=== PATIENT | female | born 1985 | race Caucasian/White ===

== ENCOUNTER → 2021-04-11 03:53 | Outpatient (CLI) | payer OTHER, SELFPAY ==
[2021-04-16 23:10] LABS: SARS-CoV-2 RNA PCR Positive
== END ==
PROVIDERS: PCP Family Medicine; Visit Provider Nurse Practitioner Family
DX: U07.1 COVID-19 (principal)
CPT/HCPCS: C9803; U0003; U0005

== ENCOUNTER 2022-02-23 10:31 | Emergency (ER) | payer BC, SELFPAY ==
[2022-02-23 10:44] VITALS: BP 135/85; PULSE 64; RESP 18; TEMP 36.2; O2SAT 99
--- NOTE | 2022-02-23 10:53 | ED.URI ---
HPI - URI/Sore Throat General Chief Complaint: Ear Stated Complaint: bilateral ear pain Time Seen by Provider: 02/23/22 10:33 Source: patient Mode of arrival: ambulatory Limitations: no limitations History of Present Illness HPI Narrative: 36-year-old female presents to [facility] with complaints of bilateral ear pressure, fatigue, cough, postnasal drip, runny nose and nasal congestion for the past week. Patient has been taking [id number] ibuprofen and Tylenol with minimal relief. Patient reports that her daughter had similar symptoms last week and was diagnosed with a cold after test negative for influenza, strep and RSV. Patient denies nausea vomiting, diarrhea, shortness of breath or wheezing. MD elicited complaint: cough, rhinorrhea and nasal congestion Onset (ago): week(s) (1) Able to tolerate fluids by mouth: Yes Context: sick contacts (daughter) Treatments prior to arrival: acetaminophen and ibuprofen Related Data Home Medications Medication Instructions Recorded Confirmed Unknown Iud 02/23/22 Allergies Allergy/AdvReac Type Severity Reaction Status Date / Time No Known Allergies Allergy Verified 02/23/22 10:49 Review of Systems Constitutional: Constitutional: Denies chills, Reports fatigue, Denies fever(s) and Denies weakness ENT: Denies vertigo, Denies dizziness, Denies epistaxis and Reports nasal congestion Comments: Runny nose, bilateral ear pressure Cardiovascular: Cardiovascular: Denies chest pain Respiratory: Respiratory: Reports cough, Denies dyspnea and Denies wheezing Gastrointestinal: Gastrointestinal: Denies abdominal pain, Denies diarrhea, Denies nausea and Denies vomiting Integumentary/Breasts: Skin/Breast: Denies rash Neurologic: Denies dizziness and Denies syncope Allergic/Immunologic: Allergic/Immunologic: Denies lip swelling, Denies throat swelling, Denies tongue swelling and Denies wheezing PMF Past Medical History Medical History Acute non-recurrent maxillary sinusitis Acute pharyngitis, unspecified (09/16/17) Anxiety BMI 33.0-33.9,adult BMI 35.0-35.9,adult BMI 37.0-37.9, adult delivery delivered Dietary counseling and surveillance (05/27/16) Dizziness Dysfunction of both eustachian tubes Elevated liver enzymes History of elevated blood pressure while in hospital Mixed hyperlipidemia Otalgia of right ear Screening for diabetes mellitus Screening for lipid disorders Screening for thyroid disorder Sprain of unspecified ligament of right ankle, initial encounter Family History Family History Father Hypertension Mother Hypertension Diabetes mellitus Grandparent Family history of malignant neoplasm of breast in first degree relative Sibling No problems noted. 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 There is no relevant family history pertinent to the presenting complaint. Exam Const: General: healthy appearing and no acute distress Nutritional Appearance: well nourished Orientation/consciousness: patient oriented x3 Limitations: no limitations HENMT: Head: normal to inspection Ears: external ears normal and TM's normal bilaterally Face/Nose/Sinus: Normal external nose present Face and sinus: normal facial exam Mouth: Yes Normal oral and palatal mucosa present and Yes lip normal Teeth and gingiva: dentition normal Throat: posterior oropharynx normal and uvula midline Eyes: Conjunctivae:
== END 2022-02-23 11:03 | disposition home or self-care (01) ==
PROVIDERS: Emergency Provider Nurse Practitioner Family; PCP Family Medicine
DX: J06.9 Acute upper respiratory infection, unspecified (principal); E78.2 Mixed hyperlipidemia
CPT/HCPCS: 99213; G0463

== ENCOUNTER 2022-06-15 14:58 | Emergency (ER) | payer BC, SELFPAY ==
--- NOTE | ~2022-06-15 | XR_ITS ---
EXAM: XR elbow RT min 3V DATE: 06/15/2022 15:16 HISTORY: FALL, RIGHT ELBOW PAIN . COMPARISON: None available. FINDINGS: Normal mineralization. No fracture or dislocation. No lytic or blastic lesion. Joint space s are maintained. No erosion or periosteal change. Soft tissues within normal limits. IMPRESSION: No acute osseous finding in the right elbow. Reviewed, dictated and finalized at location [facility]
[2022-06-15 15:05] VITALS: BP 132/89; PULSE 97; RESP 16; TEMP 36.4; O2SAT 100
[2022-06-15 15:07] VITALS: BP 132/89; PULSE 97; RESP 16; TEMP 36.4; O2SAT 100
--- NOTE | 2022-06-15 15:37 | ED.UPPEXIN ---
HPI - Extremity Injury (Upper) General Chief Complaint: Extremity Injury, Upper Stated Complaint: rt elbow injury Time Seen by Provider: 06/15/22 15:32 Source: patient Mode of arrival: ambulatory Limitations: no limitations History of Present Illness HPI narrative: Patient presents today complaining of right elbow pain. She slipped and fell on the floor in her home yesterday onto her elbow. Denies numbness or tingling in the arm or hand. She currently rates her pain 6/10 at rest, which increases with any movement or touching of the area. She has not tried any [id number] interventions prior to arrival. Related Data Home Medications Medication Instructions Recorded Confirmed semaglutide (weight loss) 0.5 0.5 mg subcut WEEKLY 06/15/22 06/15/22 mg/0.5 mL subcutaneous pen injector (Wegovy) Allergies Allergy/AdvReac Type Severity Reaction Status Date / Time No Known Allergies Allergy Verified 06/15/22 15:05 Review of Systems Review of Systems: CONSTITUTIONAL: Denies body aches, fever, chills, or sweats. EYES: Denies visual changes, redness, or discharge. ENT: Denies rhinorrhea, congestion, sore throat, or otalgia. CARDIOVASCULAR: Denies chest pain, palpitations, or edema. RESPIRATORY: Denies cough or dyspnea. GASTROINTESTINAL: Denies abdominal pain, nausea, vomiting, or diarrhea. GENITOURINARY: Denies dysuria or hematuria. SKIN: Denies rash, itching, or wounds. MUSCULOSKELETAL: Denies back pain, or myalgia.+ right elbow pain NEUROLOGIC: Denies headache, numbness, tingling, or weakness. PSYCH: Denies depression or anxiety. [facility] Past Medical History Medical History Acute non-recurrent maxillary sinusitis Acute pharyngitis, unspecified (09/16/17) Anxiety BMI 33.0-33.9,adult BMI 35.0-35.9,adult BMI 36.0-36.9,adult BMI 37.0-37.9, adult delivery delivered Dietary counseling and surveillance (05/27/16) Dizziness Dysfunction of both eustachian tubes Elevated liver enzymes History of elevated blood pressure while in hospital Mixed hyperlipidemia Otalgia of right ear Screening for diabetes mellitus Screening for lipid disorders Screening for thyroid disorder Sprain of unspecified ligament of right ankle, initial encounter Family History Family History Father Hypertension Mother Hypertension Diabetes mellitus Grandparent Family history of malignant neoplasm of breast in first degree relative Sibling No problems noted. 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 Please see nursing chart for further information. There is no relevant family history pertinent to the presenting complaint Exam Narrative: GENERAL: Well-appearing, well-nourished, and in no acute distress. HEAD: Normocephalic, atraumatic. EYES: EOMI. No redness or drainage. Conjunctivae normal. ENT: Mucous membranes pink and moist. NECK: Normal AROM. CHEST: No respiratory distress. EXTREMITIES: Right elbow: Tenderness to the posteri
== END 2022-06-15 15:43 | disposition home or self-care (01) ==
PROVIDERS: Emergency Provider Nurse Practitioner; PCP Family Medicine
DX: S50.01XA Contusion of right elbow, initial encounter (principal); W01.0XXA Fall on same level from slipping, tripping and stumbling without subsequent striking against object, initial encounter; E78.2 Mixed hyperlipidemia
CPT/HCPCS: 73080; 99213; G0463

== ENCOUNTER 2023-06-21 13:37 | Emergency (ER) | payer BC, SELFPAY ==
--- NOTE | 2023-06-21 13:39 | ED.URI ---
HPI - URI/Sore Throat General Chief Complaint: Upper Respiratory Infection Stated Complaint: Sore Throat, Earache, Drainage, Cough Time Seen by Provider: 06/21/23 14:02 Source: patient, RN notes reviewed and old records reviewed Mode of arrival: ambulatory Limitations: no limitations History of Present Illness HPI Narrative: 38-year-old female presents to the [facility] with complaints of a sore throat, ear pain, drainage and that started , 3 days ago. Has tried DayQuil. Related Data Allergies Allergy/AdvReac Type Severity Reaction Status Date / Time No Known Allergies Allergy Verified 06/21/23 13:45 Review of Systems Review of Systems: All systems reviewed & are unremarkable except as noted in HPI and below Constitutional: Constitutional: Reports no additional constitutional complaints Eyes: Eyes: Reports no additional eye complaints ENT: Reports as per HPI, Reports otalgia and Reports nasal discharge Cardiovascular: Cardiovascular: Reports no additional cardiovascular complaints, Denies chest pain and Denies dyspnea Respiratory: Respiratory: Reports no additional respiratory complaints, Denies chest congestion, Denies cough and Denies dyspnea Gastrointestinal: Gastrointestinal: Reports no additional gastrointestinal complaints, Denies abdominal pain, Denies nausea and Denies vomiting Musculoskeletal: Musculoskeletal: Reports no additional musculoskeletal complaints Integumentary/Breasts: Skin/Breast: Reports system reviewed and no additional complaints, except as docu Neurologic: Reports system reviewed and no additional complaints, except as documented Psychiatric: Psychiatric: Reports no additional psychiatric complaints Allergic/Immunologic: Allergic/Immunologic: Reports no additional allergic/immunologic complaints PMFSH Past Medical History Medical History Acute non-recurrent maxillary sinusitis Acute pharyngitis, unspecified (09/16/17) Anxiety BMI 35.0-35.9,adult delivery delivered Dietary counseling and surveillance (05/27/16) Dizziness Dysfunction of both eustachian tubes Elevated liver enzymes History of elevated blood pressure while in hospital Mixed hyperlipidemia Otalgia of right ear Screening for diabetes mellitus Screening for lipid disorders Screening for thyroid disorder Sprain of unspecified ligament of right ankle, initial encounter Family History Family History Father Hypertension Mother Hypertension Diabetes mellitus Grandparent Family history of malignant neoplasm of breast in first degree relative Sibling No problems noted. 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 There is no relevant family history pertinent to the patient complaint. Exam Const: General: cooperative, healthy appearing, comfortable, no acute distress, well developed, alert and well nourished Nutritional Appearance: well nourished Orientation/consciousness: patient oriented x3 Limitations: no limitations HENMT: Head: normal to inspect
[2023-06-21 13:47] VITALS: BP 141/84; PULSE 73; RESP 16; TEMP 36.4; O2SAT 99
== END 2023-06-21 14:18 | disposition home or self-care (01) ==
PROVIDERS: Emergency Provider Nurse Practitioner; PCP Family Medicine
DX: J06.9 Acute upper respiratory infection, unspecified (principal); R09.82 Postnasal drip; E78.2 Mixed hyperlipidemia
CPT/HCPCS: 87081; 87880; 99213; G0463

== ENCOUNTER 2025-02-26 09:10 | Emergency (ER) | payer OTHER, SELFPAY ==
[2025-02-26 09:25] VITALS: BP 121/80; PULSE 86; RESP 18; TEMP 36.6; O2SAT 99
--- NOTE | 2025-02-26 09:45 | ED.GENADULT ---
HPI - General Adult General Chief complaint: Upper Respiratory Infection Stated complaint: Sore Throat History of Present Illness HPI narrative: Jojo Ruiz is a 39 y/o female who presents with reports of having a sore throat some post nasal drainage that started 2 days ago. She states her daughter tested positive for strep 2 days ago and she wanted to make sure she does not have it. Related Data Allergies Allergy/AdvReac Type Severity Reaction Status Date / Time No Known Allergies Allergy Verified 02/26/25 09:31 Review of Systems Review of Systems: All systems reviewed & are unremarkable except as noted in HPI and below PMFSH Past Medical History Medical History ADHD BMI 35.0-35.9,adult Otalgia of right ear delivery delivered Acute non-recurrent maxillary sinusitis Acute pharyngitis, unspecified (09/16/17) Anxiety Dietary counseling and surveillance (05/27/16) Dizziness Dysfunction of both eustachian tubes Elevated liver enzymes History of elevated blood pressure while in hospital Mixed hyperlipidemia Screening for diabetes mellitus Screening for lipid disorders Screening for thyroid disorder Sprain of unspecified ligament of right ankle, initial encounter Surgical History Surgical History Hx of section Family History Family History Father Hypertension Mother Hypertension Diabetes mellitus Bile duct cancer Grandparent Family history of malignant neoplasm of breast in first degree relative Sibling No problems noted. 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 HEAD: Normocephalic, atraumatic. EYES: PERRLA and EOMI. ENT: Nares clear, no rhinorrhea or epistaxis. Mucous membranes moist. Oropharynx + mild erythema without tonsillar hypertrophy exudate or other lesions. Bilateral TMs pearly veloz non bulging NECK: Supple. No adenopathy or masses. No carotid bruits or JVD CHEST: Clear to auscultation. No respiratory distress. No wheezes rales or rhonchi HEART: Regular rate and rhythm. No murmur heard. Normal peripheral pulses. ABDOMEN: Soft, nontender, nondistended, normal active bowel sounds. EXTREMITIES: Normal range of motion. No edema. SKIN: Warm, dry, no rash. NEURO: No focal deficits. Alert and oriented x3. PSYCH: Normal mood and affect. Course Course Level of Care: Express Care Visit Vital Signs Vital signs: Vital Signs Temperature 36.6 C 02/26/25 09:25 Pulse Rate 86 02/26/25 09:25 Respiratory Rate 18 02/26/25 09:25 Blood Pressure 121/80 02/26/25 09:25 Pulse Oximetry 99 02/26/25 09:25 Oxygen Delivery Room Air 02/26/25 09:25 Temperature 36.6 C 02/26/25 09:25 Pulse Rate 86 02/26/25 09:25 Respiratory Rate 18 02/26/25 09:25 Blood Pressure 121/80 02/26/25 09:25 Pulse Oximetry 99 02/26/25 09:25 Oxygen Delivery Room Air 02/26/25 09:25 Medical Decision Making MDM Narrative Medical decision making narrative: This 39 year old patient presents with symptoms most suggestive of viral upper respiratory tract infection. Lungs are clear bilaterally without any respiratory distress or accessory muscle use. STrep - Negative Strep culture- Pending Patient discharged home in stable condition with expectant management. Return precautions were provided. Procedures: Pulse oximetry interpretation - not hypoxic. Review of medical records. DISPOSITION: Discharged home in stable condition. IMPRESSION: Acute viral pharyngitis Medical Records Medical records reviewed: Yes I reviewed the external patient's medical records. Vital Signs Vital Signs: Vital Signs Temperature 36.6 C 02/26/25 09:25 Pulse Rate 86 02/26/25 09:25 Respiratory Rate 18 02/26/25 09:25 Blood Pressure 121/80 02/26/25 09:25 Pulse Oximetry 99 11/02/25 09:25 Oxygen Delivery Room Air 02/26/25 09:25 Temperature 36.6 C 02/26/25 09:25 Pulse Rate 86 02/26/25 09:25 Respiratory Rate 18 02/26/25 09:25 Blood Pressure 121/80 02/26/25 09:25 Pulse Oximetry 99 02/26/25 09:25 Oxygen Delivery Room Air 02/26/25 09:25 vitals reviewed by me Lab Data Lab results reviewed: Yes I reviewed the patient's lab results. Discharge Plan Discharge Clinical Impression: Acute viral pharyngitis Patient Disposition: Home Condition: Stable Instructions: Antibiotic Form Additional Instructions: Continue to take OTC medications, Mucinex, Zyrtec, lozenges, Tylenol and Motrin Push oral hydration, drinking plenty of fluids. Follow up with your PCP in 1 week to ensure you are improving IF your strep culture comes back positive in the next 2-3 days you will be notified to start antibiotics. If you develop any new or worsening symptoms, chest pain, shortness of breath, vomiting then proceed to the ER. Patient Language: Colombian Prescriptions: No Action dextroamphetamine-amphetamine [Adderall XR] 10 mg capsule,extended release 24hr 10 mg PO DAILY Qty: 30 0RF escitalopram oxalate 20 mg tablet See Rx Instructions .ROUTE .COMPLEX Qty: 90 3RF Dose Instruction: TAKE 1 TABLET DAILY Rx Instructions: TAKE 1 TABLET DAILY alprazolam [Xanax] 0.25 mg tablet 0.25 mg PO BID PRN (Reason: anxiety) Qty: 20 0RF Zepbound 12.5 mg/0.5 mL solution 12.5 mg subcut WEEKLY Qty: 6 2RF Follow-up/Referrals: Gamaliel Jay MD [Primary Care Provider, Family Practice] - 1 Week Time of Disposition: 09:49
[2025-02-26 09:47] LABS: EDSTREPNEGPOS1 Negative (Negative)
== END 2025-02-26 09:51 | disposition home or self-care (01) ==
PROVIDERS: Emergency Provider Nurse Practitioner Family; PCP Family Medicine
DX: J02.8 Acute pharyngitis due to other specified organisms (principal); E78.2 Mixed hyperlipidemia; F90.9 Attention-deficit hyperactivity disorder, unspecified type; F41.9 Anxiety disorder, unspecified
CPT/HCPCS: 87081; 87880; 99213; G0463

== ENCOUNTER 2025-04-18 09:28 | Outpatient (CLI) | payer OTHER, SELFPAY ==
--- NOTE | ~2025-04-18 | MM_ITS ---
EXAMINATION: MM screening milka BI w debi HISTORY: Screening. TECHNIQUE: Craniocaudal and mediolateral oblique 3-D tomosynthesis images were obtained and synthetic 2-D images were generated. CAD analysis was submitted and interpreted. COMPARISON: None available. BREAST PARENCHYMAL COMPOSITION: Not Dense: There are scattered areas of fibroglandular Tissue. FINDINGS: No suspicious masses are seen. There are no suspicious calcifications. No unexplained architectural distortion is seen. There are no skin or nipple abnormalities identified. There is no adenopathy seen on the images submitted. IMPRESSION: No mammographic evidence to suggest malignancy is seen. The patient may return to screening mammography as per ACR guidelines. BI-RADS 1 - Negative. Reviewed, dictated and finalized at location [facility]
--- OUTSIDE RECORDS SUMMARY | 2025-04-18 09:50 | XMS_ITS | Clinical Summary ---
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 Name Role Phone Gamaliel Jay MD Primary Care Provider [phone] Allergies No known active allergies Medications escitalopram (LEXAPRO) 20 mg tablet Take 1 tablet (20 mg total) by mouth daily 05/05/2022 Active Active Problems No known active problems Social History Tobacco Use Types Packs/Day Years Used Date Smoking Tobacco: Never Personal Safety Answer Date Recorded Getting School Help Needed Not on file 06/27 Comments Unknown Sex and Gender Information Value Date Recorded Sex Assigned at Not on file Legal Sex Female 8:33 PM CDT Gender Identity Not on file Sexual Orientation Not on file Last Filed Vital Signs Vital Sign Reading Time Taken Comments Blood Pressure 146/97 09/03/2023 3:14 PM CDT Pulse 71 09/03/2023 3:14 PM CDT Temperature 36.8 C (98.3 F) 09/03/2023 3:14 PM CDT Respiratory Rate 18 09/03/2023 3:14 PM CDT Oxygen Saturation 99% 09/03/2023 3:14 PM CDT Inhaled Oxygen Concentration - - Weight 94.6 kg (208 lb 8 oz) 09/03/2023 3:14 PM CDT Height 160 cm (5' 2.99) 09/03/2023 3:14 PM CDT Body Mass Index 36.94 09/03/2023 3:14 PM CDT Plan of Treatment Health Maintenance Due Date Last Done Comments Cervical Cancer Screening 1986 Depression Screening 1986 Hepatitis C Screening 1986 DTaP/Tdap/Td Vaccine (1 - Tdap) 1997 Varicella Vaccines (1 of 2 - 13+ 2-dose series) 1999 Hepatitis B Screening 2004 Regular Well Visit/Exam 18-64 2004 HPV Vaccines (1 - 3-dose SCD M series) 2013 Covid-19 Vaccine (3 - 2024-2 6 season) 2024 06/18/2020, 05/17/2020 Influenza Vaccine (#1) 2024 01/18/2020 Pneumococcal vaccine <65 Aged Out No longer eligible based on patient's age to complete this topic Insurance [employer] [facility] Care Teams Cranberry Grower Relationship Specialty Start Date End Date Gamaliel Jay MD PCP - General Family Medicine 11/08/21
--- OUTSIDE RECORDS SUMMARY | 2025-04-18 09:50 | XMS_ITS | Clinical Summary ---
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
--- OUTSIDE RECORDS SUMMARY | 2025-04-18 09:50 | XMS_ITS | Clinical Summary ---
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 30 Tablet 02/24/2022 4:39 PM CDT 2 Active fluticasone propionate (FLONASE) 50 mcg/spray [place], Suspension nasal inhaler Administer one spray into each nostril two times a day 16 Gram 02/24/2022 4:39 PM CDT 2 Active cholecalciferol 1,250 mcg (50,000 unit) Capsule Take 1 Capsule (50,000 Units) by mouth every 7 days. 8 Capsule 02/25/2022 6:37 PM CDT 2 Active escitalopram oxalate (LEXAPRO) 20 mg tablet TAKE 1 TABLET BY MOUTH EVERY DAY 90 Tablet 3 Active cyclobenzaprine (FLEXERIL) 5 mg Tablet Take 1 Tablet (5 mg) by mouth daily before sleep (depending on need) and, if no side effects after 3 days, add 1 tablet in the morning. 28 Tablet 05/30/2022 7:39 PM SHIP SURVEYOR 3 Active ergocalciferol (VITAMIN D2) 50,000 unit capsule Take 1 Capsule (50,000 Units) by mouth every 7 days. 8 Capsule 01/06/2023 5:51 PM CDT 3 Active amphetamine-dex troamphetamine (ADDERALL XR) 10 mg Extended Release 24 hour capsule Take 1 Capsule (10 mg) by mouth daily. 30 Capsule 04/23/2023 9:54 AM SHIP SURVEYOR 3 Active chlorhexidine gluconate (HIBICLENS) 4 % Liquid Apply to affected area topically three times a day; to use with warm soaks for finger infection. 236 mL 4 Active mupirocin (BACTROBAN) 2 % Ointment APPLY TO THE AFFECTED AREA(S) THREE TIMES DAILY 22 Gram 06/19/2023 11:33 AM SHIP SURVEYOR 4 Active semaglutide, weight loss, (Wegovy) 0.25 mg/0.5 mL Pen Injector Inject 0.5 mL (0.25 mg) by subcutaneous injection every 7 days for 4 weeks. 2 mL 09/03/2023 4:15 PM CDT 4 Active amoxicillin-cla vulanate (AUGMENTIN) 875-125 mg tablet Take 1 tablet by mouth 2 (two) times a day for 10 days 20 Tablet 09/03/2023 4:15 PM CDT 4 Active amphetamine-dex troamphetamine (ADDERALL XR) 10 mg Extended Release 24 hour capsule Take 1 Capsule (10 mg) by mouth daily. Max Daily Amount: 10 mg 30 Capsule 11/13/2023 1:15 PM CDT 4 Active azithromycin (ZITHROMAX) 250 mg tablet TAKE 2 TABLETS BY MOUTH A SINGLE DOSE ON DAY 1, THEN TAKE 1 TABLET BY MOUTH ONCE DAILY ON DAYS 2 THRU 5. 6 Tablet 02/15/2024 5:21 PM CDT 4 Active escitalopram oxalate (LEXAPRO) 20 mg tablet Take 1 Tablet (20 mg) by mouth daily. 90 Tablet 3 03/28/2025 11:44 AM SHIP SURVEYOR 4 Active ALPRAZolam (XANAX) 0.25 mg tablet Take 1 Tablet (0.25 mg) by mouth 2 times daily as needed for anxiety 20 Tablet 12/09/2024 11:08 AM CDT 5 Active tirzepatide, weight loss, (ZEPBOUND) 12.5 mg/0.5 mL Pen Injector Inject 0.5 mL (12.5 mg) by subcutaneous injection every 7 days. 6 mL 2 5 Active acetaZOLAMIDE (DIAMOX) 250 mg tablet Take 1 Tablet (250 mg) by mouth 2 times daily. Take 24-48 hours prior to ascent. 20 Tablet 03/28/2025 11:44 AM SHIP SURVEYOR Active Social History Tobacco Use Types Packs/Day Years Used Date Smoking Tobacco: Never Assessed Comments Unknown Sex and Gender Information Value Date Recorded Sex Assigned at Not on file Legal Sex Female 3:24 PM CDT Gender Identity Not on file Sexual Orientation Not on file Plan of Treatment Health Maintenance Due Date Last Done Comments DTAP/TDAP/TD VACCINES (1 - Tdap) 2005 HEPATITIS B VACCINES (1 of 3 - 19+ 3-dose series) 04/27 HPV/Cotest (21-29) 2007 CERVICAL CANCER SCREENING 2016 HPV/Cotest (30-65) 2016 PAP SMEAR 2016 INFLUENZA VACCINE (#1) 2024 HPV VACCINES (No Doses Required) Completed Insurance RX [employer] (INTERNAL) [facility] [employer] [facility] [employer] Member Subscriber Plan / Payer (Ef fective for All Dates) Name:Jojo Ruiz Relation to Subscriber:Spouse Payer ID:Not on file Type:RX Commercial Address: [address] [employer]
== END 2025-04-18 09:29 | disposition home or self-care (01) ==
PROVIDERS: PCP Family Medicine; Visit Provider Obstetrics & Gynecology
DX: Z12.31 Encounter for screening mammogram for malignant neoplasm of breast (principal)
CPT/HCPCS: 77063; 77067